=== PATIENT | female | born 2000 | race Asian ===

== ENCOUNTER → 2023-02-05 12:39 | Outpatient (CLI) | payer OTHER, SELFPAY ==
[2023-02-05 14:14] LABS: Urine N gonorrhoeae NOT DETECTED
[2023-02-05 14:19] LABS: Urine Chlamydia DETECTED
[2023-02-05 16:42] LABS: Pregnancy Test Urine Negative (Negative)
== END ==
PROVIDERS: Visit Provider Physician Assistant
DX: Z11.3 Encounter for screening for infections with a predominantly sexual mode of transmission (principal); Z78.9 Other specified health status
CPT/HCPCS: 81025; 87210; 87491; 87591